=== PATIENT | female | born 1935 | race Caucasian/White ===

== ENCOUNTER 2016-11-06 13:36 | Outpatient (CLI) | payer MEDICARE, OTHER ==
[2013-10-09 02:05] VITALS: BP 156/79
== END 2016-11-06 13:37 ==
LOC: LABRHC 13:36
PROVIDERS: ATTEND Physician Assistant
DX: R30.0 Dysuria (principal)
CPT/HCPCS: 87086; 87186

== ENCOUNTER 2017-03-05 16:50 | Outpatient (CLI) | payer MEDICARE, OTHER ==
[2013-10-09 02:05] VITALS: BP 156/79
== END 2017-03-05 16:52 ==
LOC: LABRHC 16:50
PROVIDERS: ATTEND Physician Assistant
DX: R30.0 Dysuria (principal)
CPT/HCPCS: 87086

== ENCOUNTER 2017-08-14 13:50 | Outpatient (CLI) | payer MEDICARE, OTHER ==
[2013-10-09 02:05] VITALS: BP 156/79
[2017-08-14 14:37] LABS: eGFR (African) > 60; eGFR (Non-African) > 60
== END 2017-08-14 13:52 ==
LOC: LAB 13:50
PROVIDERS: ATTEND Family Medicine
DX: E03.9 Hypothyroidism, unspecified (principal); I10 Essential (primary) hypertension
CPT/HCPCS: 36415; 80048; 84443

== ENCOUNTER 2018-04-10 16:21 | Outpatient (CLI) | payer MEDICARE, OTHER ==
[2013-10-09 02:05] VITALS: BP 156/79
== END 2018-04-10 16:23 ==
LOC: LABRHC 16:21
PROVIDERS: ATTEND Physician Assistant
DX: R30.0 Dysuria (principal)
CPT/HCPCS: 87086; 87186

== ENCOUNTER 2018-05-23 16:13 | Emergency (ER) | payer MEDICARE, OTHER ==
[2018-05-23] MEDS ORDERED: ORPHENADRINE CITRATE 60 MG/2 ML ML IM ONE (16:47)
--- NOTE | 2018-05-23 16:50 | ED Physician Documentation ---
General Adult - HISTORIAN Historian: patient - HPI Stated Complaint: neck pain Chief Complaint: General Adult Additional Information: Patient presents to ED with complaints of neck pain over the past several day. She states today it has worsening with pain shooting down both arms. Patient denies injury but states she has arthritis. Aspirin has been her choice for pain control without improvement. She has HTN and hypothyroidism. Onset: days ago (several) Timing: still present, worse Severity: moderate Further Comments: no - ROS CONST: denies: fever EYES/ENT: denies: sore throat CVS/RESP: denies: chest pain, shortness of breath GI/: denies: abdominal pain, vomiting, nausea MS/SKIN/LYMPH: denies: rash NEURO/PSYCH: denies: headache - PAST HX Past History: hypertension, other (hypothryoidism) Other History: none Surgeries/Procedures: none Allergies/Adverse Reactions: Allergies Allergy/AdvReac Type Severity Reaction Status Date / Time rofecoxib Allergy Unknown Verified 05/23/18 16:40 Sulfa (Sulfonamide Allergy Unknown Verified 05/23/18 16:40 Antibiotics) sulfamethoxazole Allergy Unknown Verified 05/23/18 16:40 trimethoprim Allergy Unknown Verified 05/23/18 16:40 valdecoxib Allergy Unknown Verified 05/23/18 16:40 ANTONINA Inhibitors AdvReac Unknown No Reaction Verified 05/23/18 16:40 amoxicillin trihydrate AdvReac Unknown No Reaction Verified 05/23/18 16:40 Home Medications: Ambulatory Orders Medication Instructions Recorded Aspirin [Aspirin Ec] 325 mg PO DAILY u2 08/14/17 Naproxen 500 mg PO BID PRN #20 tablet 05/23/18 Orphenadrine Citrate [Norflex] 100 mg PO BID PRN #20 tab 05/23/18 - SOCIAL HX Smoking History: non-smoker Alcohol Use: none Drug Use: none - FAMILY HX Family History: No - VITAL SIGNS Vital Signs: Vital Signs Temp Pulse Resp BP Pulse Ox 156/79 10/09/13 02:03 - REVIEWED ASSESSMENTS Nursing Assessment Reviewed: Yes Vitals Reviewed: Yes ED Results Lab/Radiology - Radiology Radiology Impressions: CT cervical spine History: Neck pain Technique: Images through the cervical spine were obtained. Multiplanar reconstructions were performed. Findings: There is no fracture, subluxation or abnormal bone production or destruction. The vertebral bodies are of normal height. Degenerative disc disease with loss of disc height and anterior and posterior osteophyte formation is noted at all levels. Spinal canal adequate. Degenerative changes of the facet joints are present at all levels. Impression: Multilevel degenerative change but no acute abnormality. Electronically signed on May 23, 2018 5:20:23 PM INDUSTRIAL MAINTENANCE ELECTRICIAN by: Aiden Navas - Orders Orders: ED Orders Category Date Time Status CT C-SPINE W/O CONTRAST Stat Exams 05/23/18 Ordered Orphenadrine Citrate [Norflex] Med 05/23/18 16:47 Once 60 mg IM NOW ONE General Adult Physical Exam - PHYSICAL EXAM GENERAL APPEARANCE: no distress EENT: ALBA NECK: other (muscle spasms upper latissimus and bilateral erector spinae) RESPIRATORY: no resp distress, chest non-tender, breath sounds normal CVS: reg rate & rhythm, heart sounds normal ABDOMEN: soft, normal bowel sounds, non-tender BACK: No: no CVA tenderness SKIN: warm/dry, normal color EXTREMITIES: non-tender, edema (+1 lower extremity edema bilaterally to ankle) NEURO: oriented X3, motor nml Discharge Clincal Impression: Neck pain, Muscle spasm Prescriptions: Naproxen 500 mg PO BID PRN #20 tablet PRN Reason: neck pain Orphenadrine Citrate [Norflex] 100 mg PO BID PRN #20 tab PRN Reason: muscle spasm Referrals: Primary Doctor,No [Primary Care Provider] - 2 Days Additional Instructions: 1. Take medication as prescribed 2. Apply ice/heat to affected area as needed 3. Topical Aspercreme, Bengay, Icy hot or Biofreeze as needed 4. Follow up with PCP within 3 days for blood pressure check Condition: Stable Disposition: 01 HOME, SELF-CARE Decision to Admit: NO Date of Decison to Admit: 05/23/18 Decision Time: 18:00
--- NOTE | 2018-05-23 17:28 | Diagnostic Imaging Report ---
WILFRED GAMING [facility] [id number] [facility] [address] [place], [place]. [address] Report Submission Date: May 23, 2018 5:20:23 PM CORPORATE CLAIMS EXAMINER Patient Study Name: ANYA ARREOLA I Date: May 23, 2018 4:54:01 PM CORPORATE CLAIMS EXAMINER Modality Type: CT\SR Gender: F Description: CT C-SPINE W/O CONTRAS : 37 Institution: [facility] Physician: WILFRED GAMING CT cervical spine History: Neck pain Technique: Images through the cervical spine were obtained. Multiplanar reconstructions were performed. Findings: There is no fracture, subluxation or abnormal bone production or destruction. The vertebral bodies are of normal height. Degenerative disc disease with loss of disc height and anterior and posterior osteophyte formation is noted at all levels. Spinal canal adequate. Degenerative changes of the facet joints are present at all levels. Impression: Multilevel degenerative change but no acute abnormality. Electronically signed on May 23, 2018 5:20:23 PM CORPORATE CLAIMS EXAMINER by: Aiden GRIMM
[2018-05-23 18:21] VITALS: BP 188/92
== END 2018-05-23 18:00 | disposition home or self-care (01) ==
LOC: ED 16:13
DX: M54.2 Cervicalgia (principal); M62.838 Other muscle spasm
CPT/HCPCS: 72125; 96372; 99282; 99284; J2360

== ENCOUNTER 2018-12-22 10:06 | Outpatient (CLI) | payer MEDICARE ==
[2018-06-26 13:04] VITALS: BP 169/79
[2018-12-22 10:26] LABS: BASOPHILS % 0.5 % (0.0-1.5); NEUTROPHILS # 3.5 # k/uL (1.4-7.7)
== END 2018-12-22 10:08 ==
LOC: LAB 10:06
PROVIDERS: ATTEND Family Medicine
DX: I10 Essential (primary) hypertension (principal); E78.5 Hyperlipidemia, unspecified; E03.9 Hypothyroidism, unspecified
CPT/HCPCS: 84443; 85025

== ENCOUNTER 2019-01-12 07:45 | Outpatient (CLI) | payer MEDICARE ==
[2018-06-26 13:04] VITALS: BP 169/79
[2019-01-12 08:55] LABS: eGFR (Non-African) > 60
== END 2019-01-12 07:47 ==
LOC: LAB 07:45
PROVIDERS: ATTEND Family Medicine
DX: I10 Essential (primary) hypertension (principal); E78.5 Hyperlipidemia, unspecified; E03.9 Hypothyroidism, unspecified
CPT/HCPCS: 80048

== ENCOUNTER 2019-01-26 07:05 | Outpatient (CLI) | payer MEDICARE ==
[2018-06-26 13:04] VITALS: BP 169/79
[2019-01-26 11:22] LABS: eGFR (Non-African) > 60
== END 2019-01-26 07:08 ==
LOC: LAB 07:05
PROVIDERS: ATTEND Family Medicine
DX: G91.9 Hydrocephalus, unspecified (principal); F03.90 Unspecified dementia, unspecified severity, without behavioral disturbance, psychotic disturbance, mood disturbance, and anxiety
CPT/HCPCS: 80048; 84443

== ENCOUNTER 2019-02-02 07:45 | Outpatient (CLI) | payer MEDICARE ==
[2018-06-26 13:04] VITALS: BP 169/79
[2019-02-02 08:50] LABS: eGFR (Non-African) > 60
== END 2019-02-02 07:47 ==
LOC: LAB 07:45
PROVIDERS: ATTEND Family Medicine
DX: G91.4 Hydrocephalus in diseases classified elsewhere (principal); I10 Essential (primary) hypertension
CPT/HCPCS: 80048

== ENCOUNTER 2019-03-23 10:30 | Outpatient (CLI) | payer MEDICARE ==
[2018-06-26 13:04] VITALS: BP 169/79
== END 2019-03-23 10:35 | disposition home or self-care (01) ==
LOC: LAB 10:30
PROVIDERS: ATTEND Family Medicine
DX: I10 Essential (primary) hypertension (principal); E03.9 Hypothyroidism, unspecified; G91.9 Hydrocephalus, unspecified
CPT/HCPCS: 36415; 84443; P9604

== ENCOUNTER 2019-05-04 07:49 | Outpatient (CLI) | payer MEDICARE ==
[2018-06-26 13:04] VITALS: BP 169/79
== END 2019-05-04 07:54 ==
LOC: LAB 07:49
PROVIDERS: ATTEND Family Medicine
DX: E03.9 Hypothyroidism, unspecified (principal)
CPT/HCPCS: 36415; 84443

== ENCOUNTER 2019-05-24 11:05 | Outpatient (CLI) | payer MEDICARE ==
[2018-06-26 13:04] VITALS: BP 169/79
[2019-05-24 14:43] LABS: APPEARANCE,URINE CLEAR (CLEAR); COLOR,URINE YELLOW (YELLOW); OCCULT BLOOD,URINE TRACE-INTACT (NEGATIVE)
[2019-05-24 14:44] LABS: UROBILINOGEN URINE 0.2 Eu (0.2-1.0)
== END 2019-05-24 11:10 ==
LOC: LAB 11:05
PROVIDERS: ATTEND Family Medicine
DX: F07.0 Personality change due to known physiological condition (principal); R41.82 Altered mental status, unspecified
CPT/HCPCS: 81002; 87086

== ENCOUNTER 2019-06-22 08:50 | Outpatient (CLI) | payer MEDICARE ==
[2018-06-26 13:04] VITALS: BP 169/79
== END 2019-06-22 08:55 ==
LOC: LAB 08:50
PROVIDERS: ATTEND Family Medicine
DX: I10 Essential (primary) hypertension (principal); E03.9 Hypothyroidism, unspecified
CPT/HCPCS: 36415; 84443; P9604